=== PATIENT | female | born 1965 | race Caucasian/White ===

== ENCOUNTER → 2023-10-06 11:26 | Outpatient (BNVA) | payer OTHER, SELFPAY | PROVIDERS: Referring Provider Pediatrics; Visit Provider Internal Medicine | DX: E07.9 Disorder of thyroid, unspecified (principal) | CPT/HCPCS: 36415; 84439; 84443; 86376; 86800 ==

== ENCOUNTER 2023-11-10 15:53 | Outpatient (CLI) | payer OTHER, SELFPAY ==
[2023-11-10 16:41] LABS: Free T4 Free Thyroxine 1.12 ng/dL (0.82-1.77); Thyroid Stimulating Hormone 0.83 uIU/mL (0.27-4.20)
== END 2023-11-10 15:54 | disposition home or self-care (01) ==
LOC: LAB 15:57
PROVIDERS: PCP Internal Medicine; Visit Provider Internal Medicine
DX: E07.9 Disorder of thyroid, unspecified (principal)
CPT/HCPCS: 36415; 84439; 84443

== ENCOUNTER 2024-05-17 10:57 | Outpatient (CLI) | payer OTHER, SELFPAY ==
[2024-05-17 12:19] LABS: Free T4 Free Thyroxine 0.95 ng/dL (0.82-1.77); Thyroid Stimulating Hormone 1.03 uIU/mL (0.27-4.20)
[2024-05-18 05:26] LABS: T3 Total 97 ng/dL (76-181)
== END 2024-05-17 10:58 | disposition home or self-care (01) ==
LOC: LAB 11:00
PROVIDERS: PCP Pediatrics; Visit Provider Internal Medicine
DX: R53.83 Other fatigue (principal); E03.9 Hypothyroidism, unspecified
CPT/HCPCS: 36415; 84439; 84443; 84480

== ENCOUNTER 2024-08-01 07:17 | Outpatient (CLI) | payer OTHER, SELFPAY ==
[2024-08-01 08:10] LABS: Free T4 Free Thyroxine 0.93 ng/dL (0.82-1.77); Thyroid Stimulating Hormone 0.58 uIU/mL (0.27-4.20)
[2024-08-02 04:03] LABS: T3 Total 101 ng/dL (76-181)
== END 2024-08-01 07:18 | disposition home or self-care (01) ==
PROVIDERS: PCP Pediatrics; Visit Provider Internal Medicine
DX: F41.9 Anxiety disorder, unspecified (principal); K59.00 Constipation, unspecified; R53.83 Other fatigue; E03.9 Hypothyroidism, unspecified
CPT/HCPCS: 36415; 84439; 84443; 84480

== ENCOUNTER 2024-09-20 11:30 | Outpatient (CLI) | payer OTHER, SELFPAY ==
[2024-09-20 13:12] LABS: Free T4 Free Thyroxine 0.87 ng/dL (0.82-1.77); Thyroid Stimulating Hormone 1.00 uIU/mL (0.27-4.20)
== END 2024-09-20 11:31 | disposition home or self-care (01) ==
PROVIDERS: PCP Internal Medicine; Visit Provider Internal Medicine
DX: E03.9 Hypothyroidism, unspecified (principal); R53.83 Other fatigue; K59.00 Constipation, unspecified; F41.9 Anxiety disorder, unspecified
CPT/HCPCS: 36415; 84439; 84443; 84480

== ENCOUNTER 2024-11-19 13:10 | Outpatient (CLI) | payer OTHER, SELFPAY ==
[2024-11-19 13:58] LABS: Free T4 Free Thyroxine 0.78 ng/dL (0.82-1.77); Thyroid Stimulating Hormone 0.50 uIU/mL (0.27-4.20)
== END 2024-11-19 13:11 | disposition home or self-care (01) ==
PROVIDERS: PCP Internal Medicine; Visit Provider Internal Medicine
DX: E03.9 Hypothyroidism, unspecified (principal)
CPT/HCPCS: 36415; 84439; 84443; 84480